=== PATIENT | male | born 1995 | race Caucasian/White ===

== ENCOUNTER 2021-07-02 20:12 | Emergency (ER) | payer BC ==
[~2021-07-02] VITALS: Ht 172.7 cm; Wt 49.9 kg
[2021-07-02 20:30] VITALS: BP 134/76
[2021-07-02] MEDS ORDERED: SODIUM CHLORIDE FLUSH 10 ML SYR IVF STA (21:14)
[2021-07-02 21:57] LABS: BASOPHILS % (AUTO) 0.1 % (0.0-2.0); EOSINOPHILS % (AUTO) 0.1 % (0.0-4.0); HEMATOCRIT 42.8 % (36-52); HEMOGLOBIN 14.3 g/dL (12.0-18.0); LYMPHOCYTES % (AUTO) 7.7 % (20.5-51.1); MEAN CORPUSCULAR HEMOGLOBIN 30 pg (27-31); MEAN CORPUSCULAR HGB CONC 34 g/dL (33-37); MEAN CORPUSCULAR VOLUME 89.8 fL (80-94); MONOCYTES # (AUTO) 0.5 K/uL (0.8-1.0); MONOCYTES % (AUTO) 3.9 % (1.7-9.3); NEUTROPHILS # (AUTO) 11.8 K/uL (1.8-7.7); NEUTROPHILS % (AUTO) 88.2 % (42.2-75.2); PLATELET COUNT (AUTO) 184 K/uL (140-450); RED BLOOD CELL COUNT(AUTO) 4.76 MIL/uL (4.20-6.10); RED CELL DISTRIBUTION WIDTH 13.7 % (11.6-13.7); WHITE BLOOD COUNT (AUTO) 13.4 K/uL (4.8-10.8)
[2021-07-02 22:14] LABS: APPEARANCE,URINE CLEAR (CLEAR); BILIRUBIN,URINE NEGATIVE (NEGATIVE); BLOOD, URINE 2+ (NEGATIVE); COLOR,URINE YELLOW (YELLOW); LEUKOCYTE ESTERASE ,URINE NEGATIVE (NEGATIVE); NITRITE, URINE NEGATIVE (NEGATIVE); PH,URINE 6.5 (5.0-9.0); UGLUCOSE NEGATIVE (NEGATIVE)
[2021-07-02 22:23] LABS: ALBUMIN 4.4 g/dL (3.4-5.0); ANION GAP 12.8 (8-16); CARBON DIOXIDE 29.2 mmol/L (21-32); CREATININE 1.1 mg/dL (0.6-1.3)
[2021-07-02] MEDS ORDERED: KETOROLAC 30 MG/ML VIAL IM SCH (22:45)
[2021-07-03] MEDS ORDERED: KETOROLAC 30 MG/ML VIAL ONE (00:36)
[2021-07-03] MEDS ORDERED: KETOROLAC 30 MG/ML VIAL IM ONE (01:05)
--- NOTE | 2021-07-03 01:15 | NUR ---
PT AMBULATED TO BED 02.
[2021-07-03] MEDS ORDERED: DOXY-487 PO (02:24)
[2021-07-03] MEDS ORDERED: cefTRIAXone 500 MG in LIDOCAINE MPF 1% 1 ML IM ONE (02:25)
[2021-07-03] MEDS ORDERED: IBUP-2213 PO (02:25)
[2021-07-03] MEDS ORDERED: cefTRIAXone 500 MG VIAL ONE (02:26)
[2021-07-03] MEDS ORDERED: LIDOCAINE MPF 1% 5 ML ONE (02:27)
--- NOTE | 2021-07-03 02:55 | NUR ---
PATIENT CLEARED FOR DSICHARGE. ADVISED TO FOLLOW UP WITH PCP AND RETURN IF CONDITION WORSENS. NO FURTHER QUESTIONS FOLLOWING DISCHARGE TEACHINGF.
[2021-07-03 02:59] VITALS: BP 127/66
--- NOTE | 2021-07-03 03:01 | NUR ---
Chart checked and completed. The patient's care was reviewed and supervised by [facility], RN.
== END 2021-07-03 02:55 | disposition home or self-care (01) ==
LOC: MED 20:12
DX: R30.0 Dysuria (principal); N50.89 Other specified disorders of the male genital organs; Z79.2 Long term (current) use of antibiotics; Z79.1 Long term (current) use of non-steroidal anti-inflammatories (NSAID)
CPT/HCPCS: 36415; 76870; 80053; 81003; 83690; 85025; 96372; 99284; J0696; J1885; J2001; Q0092; 87491